=== PATIENT | female | born 1995 | race Two or more races ===

== ENCOUNTER 2022-04-25 11:50 | Inpatient (IN) | payer OTHER ==
[2022-04-25] MEDS ORDERED: ELECTROLYTE-148 SOLN 1,000 ML IV SCH (13:15)
[2022-04-25 13:36] LABS: HEMATOCRIT 32.2 % (32.4-45.2); HEMOGLOBIN 10.7 GM/dL (10.7-15.3); MCH 28.1 pg (25.7-33.7); MCHC 33.3 g/dl (32.0-36.0); MEAN CELL VOLUME 84.4 fl (80-96); PLATELET COUNT 270 10^3/uL (134-434); RBC 3.82 M/mm3 (3.60-5.2); RDW 15.3 % (11.6-15.6)
[2022-04-25] MEDS ORDERED: OXYTOCIN 20 UNITS in 0.9% NS 20 UNIT/1,000 ML INFUS.BAG IV ONE (13:41)
[2022-04-25 13:46] LABS: INR 0.92 (0.83-1.09); PROTHROMBIN TIME (PATIENT) 10.6 SEC (9.7-13.0)
[2022-04-25 13:49] LABS: ACTIVATED PTT 26.9 SECONDS (25.2-36.5)
[2022-04-25] MEDS ORDERED: OXYTOCIN 30 UNITS in 0.9% NS 30 UNIT/500 ML INFUS.BAG IVPB SCH (14:00)
[2022-04-25 14:02] LABS: CALCIUM 8.4 mg/dL (8.5-10.1)
[2022-04-25] MEDS ORDERED: OXYTOCIN 30 UNITS in 0.9% NS 30 UNIT/500 ML INFUS.BAG IVPB ONE (14:02)
[2022-04-25 14:03] LABS: BLOOD UREA NITROGEN 7.2 mg/dL (7-18)
[2022-04-25 14:06] LABS: CREATININE 0.7 mg/dL (0.55-1.3)
[2022-04-25 14:39] VITALS: BMI 34.9
[2022-04-25] MEDS ORDERED: BENZOCAINE 28 GM HEMORRHOIDAL OINTMENT TP PRN (14:44)
[2022-04-25] MEDS ORDERED: BENZOCAINE 20% 57 GM BOTTLE TP PRN (14:44)
[2022-04-25] MEDS ORDERED: BISACODYL 10 MG SUPP.RECT RC PRN (14:44)
[2022-04-25] MEDS ORDERED: WITCH HAZEL 50% (TUCKS) 40 PAD/JAR PAD TP PRN (14:44)
[2022-04-25] MEDS ORDERED: METHYLERGONOVINE MALEATE 0.2 MG/1 ML AMP IM PRN (14:44)
[2022-04-25] MEDS ORDERED: OXYTOCIN 20 UNITS in 0.9% NS 20 UNIT/1,000 ML INFUS.BAG IV SCH (14:45)
[2022-04-25 14:49] LABS: ANISOCYTOSIS 0; HELMET CELLS 0; HOWELL-JOLLY BODIES 0; MACROCYTOSIS 0; OVALOCYTE 0; ROULEAU 0; SICKELED CELLS 0; TARGET CELLS 0; TEAR DROP CELLS 0; TOXIC GRANULATION 0
[2022-04-25 16:43] LABS: CORD BASE EXCESS -8.2 mmol/L (0-2); CORD HCO3 20.1 mmHg (20-29); CORD PCO2 51.4 mmHg (30-78); CORD pH 7.21 (7.14-7.44)
[2022-04-25 16:47] LABS: CORD HCO3 21.2 mmHg (20-29); CORD PCO2 67.8 mmHg (30-78); CORD pH 7.112 (7.14-7.44)
[2022-04-25] MEDS: IBUPROFEN 600 MG TABLET (FP) PO PRN (16:52)
[2022-04-25 16:57] LABS: COCAINE, UR NEGATIVE (NEGATIVE); METHADONE, UR NEGATIVE (NEGATIVE); OPIATES, URI NEGATIVE (NEGATIVE); URINE BARBITURATES NEGATIVE (NEGATIVE)
[2022-04-25 16:58] LABS: PHENCYCLIDINE,URINE NEGATIVE (NEGATIVE)
[2022-04-25 17:00] LABS: URINE AMPHETAMINES NEGATIVE (NEGATIVE); URINE BENZODIAZEPINES NEGATIVE (NEGATIVE)
[2022-04-25] MEDS: ACETAMINOPHEN 325 MG TABLET (FP) PO PRN (23:02)
[2022-04-26] MEDS: IBUPROFEN 600 MG TABLET (FP) PO PRN ×2 (06:16→09:29)
[2022-04-26 08:04] LABS: BASO % 0.1 % (0-2.0); EOS % 0.1 % (0-4.5); HEMATOCRIT 27.1 % (32.4-45.2); LYMPH % 10.9 % (8-40); MCHC 33.3 g/dl (32.0-36.0); MEAN PLT VOLUME 7.9 fl (7.5-11.1); MONO % 6.2 % (3.8-10.2); NEUT % 82.7 % (42.8-82.8); PLATELET COUNT 225 10^3/uL (134-434); RBC 3.23 M/mm3 (3.60-5.2); RDW 15.6 % (11.6-15.6); WHITE BLOOD COUNT 14.3 K/mm3 (4.0-10.0)
[2022-04-26] MEDS: PRENATAL VITAMINS W/ FOLIC ACID TABLET (FP) PO SCH (09:29)
[2022-04-26] MEDS: ACETAMINOPHEN 325 MG TABLET (FP) PO PRN (18:07)
[2022-04-26] MEDS ORDERED: SENNOSIDES/DOCUSATE COMBO (SENNA PLUS) TABLET (UD) PO PRN (22:00)
[2022-04-27] MEDS: ACETAMINOPHEN 325 MG TABLET (FP) PO PRN (06:06)
[2022-04-27] MEDS: PRENATAL VITAMINS W/ FOLIC ACID TABLET (FP) PO SCH (09:28)
[2022-04-27 14:05] VITALS: BP 133/64; PULSE 88; RESP 16; TEMP 98.3
== END 2022-04-27 17:35 | disposition home or self-care (01) | DRG 560 ==
LOC: JDEL 11:50 → JLDR 12:55 → J3W 16:42
PROVIDERS: ADMIT Obstetrics & Gynecology; ATTEND Obstetrics & Gynecology
PROC: 10E0XZZ Delivery of Products of Conception, External Approach (ICD-10-PCS; principal; 2022-04-25)
DX: O66.0 Obstructed labor due to shoulder dystocia (principal); O98.52 Other viral diseases complicating childbirth; U07.1 COVID-19; O69.89X0 Labor and delivery complicated by other cord complications, not applicable or unspecified; Z3A.39 39 weeks gestation of pregnancy; Z37.0 Single live birth
CPT/HCPCS: 36415; 36600; 59409; 80048; 80307; 82803; 85025; 85610; 85730; 86780; 86850; 86900; 86901; C9803-CS; U0003; U0005